=== PATIENT | male | born 1975 | race Caucasian/White ===

== ENCOUNTER 2019-03-03 07:19 | Emergency (ER) | payer OTHER, SELFPAY ==
[2019-03-03] MEDS ORDERED: Lidocaine 2% Jelly 5 ML TUBE ONE (07:58)
[2019-03-03] MEDS ORDERED: Lidocaine 1% (PF) 30 ML VIAL ONE (07:58)
[2019-03-03] MEDS ORDERED: Bacitracin 1 PK ONE (08:45)
[2019-03-03] MEDS ORDERED: Amoxicillin/Potassium Clav 875 MG TAB ONE (09:26)
[2019-03-03] MEDS ORDERED: Ondansetron ODT 4 MG TAB ONE (09:31)
== END 2019-03-03 12:10 | disposition short-term general hospital (02) ==
LOC: NAV ERS 07:19
DX: S03.2XXA Dislocation of tooth, initial encounter (principal); S01.511A Laceration without foreign body of lip, initial encounter; F17.210 Nicotine dependence, cigarettes, uncomplicated; V69.9XXA Occupant (driver) (passenger) of heavy transport vehicle injured in unspecified traffic accident, initial encounter
CPT/HCPCS: 12015; 64400; G0390; J2001; Q0162